=== PATIENT | male | born 2000 | race African-American/Black ===

== ENCOUNTER → 2024-11-13 | Outpatient (REF) | payer OTHER ==
[~2024-11-13] MED LIST: GADOBENATE DIMEGLUMINE 1 ML IV ONE
== END ==
LOC: MRI 09:26
PROVIDERS: ATTEND Surgery
DX: R22.32 Localized swelling, mass and lump, left upper limb (principal); S60.222D Contusion of left hand, subsequent encounter; S67.22XA Crushing injury of left hand, initial encounter